=== PATIENT | female | born 2000 | race Two or more races ===

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

== ENCOUNTER 2022-04-29 14:12 | Emergency (ER) | payer MEDICAID ==
[~2022-04-29] VITALS: Ht 160 cm; Wt 54.5 kg
[~2022-04-29 14:12] MED LIST: FLUO10CA24 PO
[2022-04-29] MEDS ORDERED: KETOROLAC TROMETHAMINE 30 MG/ML VIAL IM ONE (16:00)
[2022-04-29] MEDS ORDERED: IBUP-2070 PO (16:44)
[2022-04-29 17:14] VITALS: BP 122/80
== END 2022-04-29 17:17 | disposition home or self-care (01) ==
LOC: EMS 14:17
DX: S42.011A Anterior displaced fracture of sternal end of right clavicle, initial encounter for closed fracture (principal); W18.39XA Other fall on same level, initial encounter; Y93.51 Activity, roller skating (inline) and skateboarding; Y92.89 Other specified places as the place of occurrence of the external cause; Y99.8 Other external cause status
CPT/HCPCS: 99283; 73030; 96372; J1885